=== PATIENT | female | born 1950 | race Caucasian/White ===

== ENCOUNTER 2017-11-25 10:13 | Emergency (ER) | payer OTHER ==
--- NOTE | 2017-11-25 11:20 | UC ---
Throat Pain/Nasal [place] HPI - HPI Summary HPI Summary: 67 yo WF h/o renal calculi c/o cough, sore throat associated with f/c this AM, also had brief episode of heart palpitations associated with chills. Denies h/o HTN or arrythmias and thinks it may be related to acute physical sickness. Has had arrythmias and "arrythmias" but "hates doctors" and never followed up - History of Current Complaint Chief Complaint: UCGeneralIllness Stated Complaint: SORE THROAT CHILLS EAR PAIN RAPID HEART BEAT Time Seen by Provider: 11/25/17 11:03 Hx Obtained From: Patient Onset/Duration: Sudden Onset, Lasting Days, Still Present Pain Intensity: 0 Cough: Nonproductive Associated Signs & Symptoms: Positive: Fever - Allergies/Home Medications Allergies/Adverse Reactions: Allergies Allergy/AdvReac Type Severity Reaction Status Date / Time hydrocodone Allergy Vomiting Verified 11/25/17 10:25 Penicillins Allergy Rash Verified 11/25/17 10:25 Home Medications: Home Medications NK [No Home Medications Reported] 11/25/17 [History Confirmed 11/25/17] PMH/Surg Hx/FS Hx/Imm Hx Previously Healthy: Yes - Surgical History Surgical History: None - Social History Alcohol Use: Rare Substance Use Type: None Smoking Status (MU): Never Smoked Tobacco Review of Systems Constitutional: Fever, Chills Skin: Negative Eyes: Negative ENT: Negative Respiratory: Cough Cardiovascular: Palpitations Gastrointestinal: Negative Genitourinary: Negative Motor: Negative Neurovascular: Negative Musculoskeletal: Negative Neurological: Negative Psychological: Negative All Other Systems Reviewed And Are Negative: Yes Physical Exam Triage Information Reviewed: Yes Vital Signs: Initial Vital Signs Temp 35.8 C 11/25/17 10:26 Pulse 51 11/25/17 10:26 Resp 18 11/25/17 10:26 BP 153/122 11/25/17 10:26 Pulse Ox 100 11/25/17 10:26 Eye Exam: Normal ENT Exam: Normal ENT: Positive: Pharynx normal, Nasal drainage. Negative: Nasal congestion, Sinus tenderness Dental Exam: Normal Neck exam: Normal Neck: Positive: 1 Respiratory Exam: Normal Respiratory: Positive: Lungs clear Cardiovascular: Positive: Tachycardia, Other: - irregularly irrgular HR in 140's Abdominal Exam: Normal Abdomen Description: Positive: Nontender Musculoskeletal Exam: Normal Neurological Exam: Normal Psychological Exam: Normal Skin Exam: Normal Throat Pain/Nasal Course/Dx - Course Course Of Treatment: EKG revelaed afib in 140's. Pt remained stable and conversnat w/o c/o CP and SOB and currently very anxious and initally refused ambulance. PT somewhat nonchalant and VERY OPPOSED to going to [facility] [place] becuse "their friends had bad experiences there" and would rather go to another hospital, to which i advised against and to go via Ambulance autumn, son agreed but taking pt a long time to convince and finally reluctantly agreed. Discussed with son who initially felt better about driving her to ED but upon further monitoring on EKG and persistent afib with HR in 120-140-150's, ambulance called and Dr Hines in ER made aware. manual SBP in 190's, pt also very anxious Discharge - Sign-Out/Discharge Documenting (check all that apply): Discharge - Discharge Plan Condition: Guarded Disposition: TRANS HIGHER LVL OF CARE FAC Discharge Disposition Comment: Spoke to Dr Hines informed that pt will go to ED via ambulance Patient Education Materials: A-fib (Atrial Fibrillation) (ED) Referrals: No Primary Care Phys,NOPCP [Primary Care Provider] - - Billing Disposition and Condition Condition: GUARDED Disposition: EMTALA
[2017-11-25 11:39] VITALS: BP 195/100
[2017-11-25] MEDS ORDERED: Metoprolol Tartrate TAB* 25 MG PO ONE (11:48)
[2017-11-25] MEDS ORDERED: Aspirin EC TAB* 325 MG PO ONE (11:48)
[2017-11-25] MEDS ORDERED: Aspirin TAB* 325 MG ONE (11:51)
--- NOTE | 2017-11-27 16:11 | UC ---
- Progress Note Progress Note: Patient was sent to ED for further care---However does have some yeast in her throat culture---please call and assure sore throat sx have have resolved-- <Janae Kat - Last Filed: 11/27/17 16:09> Discharge - Sign-Out/Discharge Documenting (check all that apply): Post-Discharge Follow Up - Billing Disposition and Condition Condition: GUARDED Disposition: EMTALA <Janae Kat - Last Filed: 11/27/17 16:09> - Sign-Out/Discharge Documenting (check all that apply): Post-Discharge Follow Up - Billing Disposition and Condition Condition: GUARDED Disposition: EMTALA <Micaela Mathew - Last Filed: 11/27/17 19:27> - Discharge Plan Condition: Guarded Disposition: TRANS HIGHER LVL OF CARE FAC Patient Education Materials: A-fib (Atrial Fibrillation) (ED) Referrals: No Primary Care Phys,NOPCP [Primary Care Provider] - Additional Instructions: f/u of throat culture shows presence of yeast, after telephone f/u by nurse patient continues to have throat irritation, will prescribe nystatin swish and swallow , referral to PCP for follow up
== END 2017-11-25 12:18 | disposition short-term general hospital (02) ==
LOC: UCEAST 10:13
DX: R05 Cough (principal); R50.9 Fever, unspecified; B37.9 Candidiasis, unspecified; R00.2 Palpitations; R00.0 Tachycardia, unspecified; I48.92 Unspecified atrial flutter; Z79.82 Long term (current) use of aspirin; R06.02 Shortness of breath; Z88.5 Allergy status to narcotic agent; Z88.0 Allergy status to penicillin
CPT/HCPCS: 87070; 87651; 93005; 99203; A9270-GY; G0463

== ENCOUNTER 2017-11-25 12:41 | Inpatient (IN) | payer OTHER ==
[2017-11-25] MEDS ORDERED: NS 0.9% 1000 ML* 1,000 ML IV ONE (12:49)
[2017-11-25] MEDS ORDERED: Metoprolol Tartrate IV* 1 MG/ML 5 ML VIAL IV ONE (13:10)
--- NOTE | 2017-11-25 13:32 | RAD ---
INDICATION: Flulike symptoms. Cough. Tachycardia. Comparison: No relevant prior exams available on the [facility] [place] for comparison. Technique: Upright AP 1315 hours Report: Elevated lung volumes. No focal pulmonary lesion, compelling alveolar consolidation, pleural effusion, pneumothorax. Negative for cardiomegaly. Unremarkable central pulmonary vasculature. Mildly tortuous descending thoracic aorta. IMPRESSION: Elevated lung volumes suggest potential obstructive lung disease. No acute cardiopulmonary process evident.
[2017-11-25 13:40] LABS: ABS Basophils 0.1 10^3/ul (0-0.2); ABS Eosinophils 0 10^3/ul (0-0.6); ABS Lymphocytes 1.5 10^3/ul (1.0-4.8); ABS Monocytes 0.6 10^3/ul (0-0.8); ABS Neutrophils 8.9 10^3/ul (1.5-7.7); ABS Nucleated RBC 0 10^3/ul; Eosinophil % 0.3 % (0-6); Hematocrit 47 % (35-47); Hemoglobin 15.7 g/dl (12.0-16.0); Lymphocyte % 13.6 % (25-47); Mean Corpuscular HGB Conc 33 g/dl (31-36); Mean Corpuscular Hemoglobin 29 pg (27-31); Mean Corpuscular Volume 88 fL (80-97); Mean Platelet Volume 8.6 um3 (7.4-10.4); Nucleated Red Blood Cells % 0; Platelet Count 243 10^3/ul (150-450); Red Blood Count 5.37 10^6/ul (4.0-5.4); Red Cell Distribution Width 13 % (10.5-15); White Blood Count 11.1 10^3/ul (3.5-10.8)
[2017-11-25 14:14] LABS: EGFR Non-African American 50.1 (>60)
[2017-11-25] MEDS ORDERED: Diltiazem IV* 5 MG/ML 5 ML VIAL (for loading dose/IV Push) (25 MG) IV SLOW PU ONE ×2 (15:07→17:47)
[2017-11-25 16:34] LABS: Urine Appearance Cloudy; Urine Blood 3+ (Negative); Urine Color Straw; Urine Ketones Negative (Negative); Urine Protein 1+(30 mg/dL) (Negative); Urine Specific Gravity 1.007 (1.010-1.030); Urine Urobilinogen Negative (Negative)
[2017-11-25] MEDS ORDERED: cefTRIAXone(*) 1 GM in NS 0.9% 50 ML* 50 ML IVPB ONE (17:32)
[2017-11-25] MEDS ORDERED: Dextrose 50% Syringe 50 ML* 25 GM/50 ML SYRINGE IV PUSH PRN (17:47)
[2017-11-25] MEDS ORDERED: Acetaminophen TAB* 325 MG PO PRN (17:47)
[2017-11-25] MEDS ORDERED: Ondansetron INJ* 2 MG/ML VIAL IV PRN (17:47)
[2017-11-25] MEDS ORDERED: NS 0.9% 50 ML* 100 ML ONE (17:51)
[2017-11-25] MEDS ORDERED: Diltiazem IV VIAL* 125 MG in NS 0.9% 100 ML* 100 ML IVPB SCH (18:00)
[2017-11-25] MEDS ORDERED: NS 0.9% 1000 ML* 1,000 ML IV SCH (18:00)
[2017-11-25] MEDS: Insulin LISPRO* 1 UNITS UNIT SUBCUT SCH (18:19)
--- NOTE | 2017-11-25 21:33 | HP ---
HISTORY AND PHYSICAL: DATE OF ADMISSION: 11/25/17 PRIMARY CARE PROVIDER: None. ATTENDING PHYSICIAN WHILE IN THE HOSPITAL: Rosi Prieto MD * (report dictated by Johnathon Dolan NP) CHIEF COMPLAINT: 1. Palpitations. 2. Not feeling well. HISTORY OF PRESENT ILLNESS: Mrs. Maciel is a 67-year-old female patient. She does not see primary care provider. The only history that she knows of is nephrolithiasis. She states she went to Urgent Care today because she woke up this morning between 4 and 6 in the morning, started having palpitations and she felt sweaty. She noticed the palpitations. She said my heart was running at like 90 miles an hour. She said she had palpitations. She has had these once before when she went through menopause and none since then. She went to bed last night around 11 o'clock. She said she felt fine. She did not have palpitations. She said today with palpitations, she did not feel short of breath. She did not have any leg calf pain. No recent trips or travel or surgeries. She denied having any chest tightness, chest discomfort. No chest pressure. She went to Urgent Care after she spoke to her son about what was going on. Urgent Care evaluated her and found that she was in Aflutter and then she was sent to the hospital. She does not take any medications routinely. The only thing she says is that she has had a cold for the last 2 to 3 weeks, but she is getting over. She said she was not taking any stimulant medications. No pseudoephedrine. She does not drink caffeine. She denied any drug use or any again stimulants, but the patient was obviously found to be in rapid Aflutter. So, we were asked to evaluate for admission. PAST MEDICAL HISTORY: Shows nephrolithiasis. PAST SURGICAL HISTORY: Denied. HOME MEDICATIONS: Denied. ALLERGIES TO MEDICATIONS: Include PENICILLINS and HYDROCODONE. FAMILY HISTORY: Her mom's history is unknown. Her father did have heart concerns. SOCIAL HISTORY: She does not smoke. Does not drink. She is . Surrogate decision maker is her son. REVIEW OF SYSTEMS: There is no documented fever. She denied any significant weight change. She denies having any ear discharge. There was rhinorrhea, which is now improved. She did feel congested, which is now improved. She denies having any shortness of breath. No chest pain. No abdominal pain. There was no nausea, no vomiting. No dysuria, no frequency. No seizure, no loss of consciousness. No pruritus and no skin ulcerations. Review of 14 systems was completed, all others negative. PHYSICAL EXAMINATION GENERAL: At this time, Mrs. Maciel is a 67-year-old female patient. She appears to be well nourished, well developed. She is sitting in the ED stretcher. Does not appear to be in any acute distress. VITAL SIGNS: Blood pressure 144/76, pulse 76, respirations 14, O2 saturations 97%. I will say now that her heart rate is 146. She was given a Cardizem bolus in the ED. When she was given it, it did drop her pressures and according to nursing staff, systolics into the 70s, so the drip was not started. HEENT: Head: Atraumatic, normocephalic. Eyes: EOMs are intact. Sclerae anicteric and not pale. Throat: Oral mucosa appears to be moist. No oropharyngeal erythema. NECK: Supple. LUNGS: Clear to auscultation bilaterally. No wheezes, rales, or rhonchi. HEART: Sounds S1, S2. Irregularly irregular rate. No murmurs, rubs, or gallops. ABDOMEN: Soft, flat, nontender. Bowel sounds were present. EXTREMITIES: Pulses were 2+ throughout. She is moving all 4 extremities with 5 /5 strength. NEUROLOGIC: She is awake, alert, oriented x3. Tongue midline. Generator Rebuilder were equal. No gross focal deficits. SKIN: Intact. LABORATORY DATA/DIAGNOSTIC STUDIES: WBC 11.1, RBC of 5.37, hemoglobin of 15.7 , hematocrit of 47, platelet count 243. Blood gas showed a pH of 7.37, pCO2 of 41, pO2 of 34, that was venous. Sodium is 136, potassium 4.8, chloride of 99, bicarb of 25, BUN 15, creatinine 1.09, glucose 336. Lactate was 2.5. Mag was 11.7. Calcium 10.1. Total mag 2.0. Total bili 0.4, AST 18, ALT 17, alk phos 103. Troponin 0.01, repeat troponin was 0.02. TSH was normal at 1.38, free T4 was 0.88. Urine showed 3+ leukocyte esterase, 3+ wbc's, 1+ bacteria. She had a chest x-ray, impression: Elevated lung volumes suggest potential obstructive lung disease, no acute cardiopulmonary process evident. She had a couple of EKGs today, which does show atrial flutter with a diffuse ST depression with intraventricular conduction delay. Previous EKGs did show normal sinus rhythm with rate 84. Old medical records were reviewed. ASSESSMENT AND PLAN: Mrs. Maciel is a 67-year-old female patient coming in to the ED with complaints of palpitations. On evaluation, was found to be in atrial flutter. We were asked to evaluate for admission. She will be admitted under observation status for: 1. Atrial flutter. I had a lengthy discussion with the patient as she is adamantly refusing blood thinners. She does not want to be on any blood thinners whatsoever. I explained to her that she has a high risk for cerebrovascular accident. Her CHADS-VASc score is 3. I did explain to her that she is at risk for stroke from 3.2% to 4.6%. The patient at this point though again is willing to take this risk and understands the risk associated with stroke. She is able to verbalize to me that stroke can cause significant disability and cause permanent damage and also lead to . I did explain that strokes in her setting of atrial flutter, she should be on blood thinner, but she did not. She was willing to take aspirin, which I did start for her. I did explain to her that rate control would be paramount in this and she is not interested in cardioversion given the fact that she would need to be on anticoagulation. So, she is agreeable to undergo Cardizem drip and then transition to p.o. Cardizem. So, I am going to try to hopefully have her convert if I can get her heart rate down on IV Cardizem. I suspect this started sometime in the middle of the night last night. I did order an echo. We will cycle her troponins. Her electrolytes appeared to be stable. Her mag was normal, her K was normal and her TSH is normal and we will continue to follow her. 2. New onset diabetes. Again, I did explain to the patient that her A1c was 11.7 and that she certainly does appear to have diabetes. I explained to her I would put her on a lispro sliding scale and I also explained to her that untreated diabetes could lead to kidney damage, retinal damage, could lead to heart disease, could lead to neuropathy, amputations if left untreated. Also could lead to if untreated due to side effects related to diabetes. The patient was amenable to going on sliding scale and she is willing to go on low dose metformin with close followup. I am going to refer her to see [facility]. In addition to this, I will refer her to a nutrition evaluation as well. 3. Elevated lactic acid. I suspect this is probably related to the diabetes or being dehydrated. Also underlying infection could be the source. She does have a urinary tract infection. I am going to put her on Rocephin to treat this. I have ordered a rapid flu swab given the recent URI symptoms. Her chest x-ray was negative and because of the low rate temperature, I think blood cultures are appropriate if she will allow us to draw them. I did explain to her the risks of untreated infection and how uncontrolled diabetes can certainly increase her risk for infection. So, again I will go ahead and put her on Rocephin to treat the underlying urinary tract infection. 4. DVT prophylaxis. She is refusing all blood thinners. I did explain to her risks of deep venous thromboses while in the hospital. She is at increased risk given her age and her BMI, but at this point she is refusing. So I did put her on SCDs. 5. Code status. Full code. 6. Fluids, electrolytes, and nutrition. Consistent carb diet. TIME SPENT: Time spent on admission 70 minutes, greater than half of the time spent [id number] with the patient obtaining my history and physical, the other half of the time was spent going over the plan of care with the patient and implementing the plan of care. I discussed the plan of care with my attending, Dr. Prieto; she is in agreement. JOHNATHON DOLAN, BRITTNI [id number]/[facility] #: [id number] MTDD
--- NOTE | 2017-11-25 21:33 | CONS ---
CONSULTATION REPORT: DATE OF CONSULT: 11/25/17 REFERRING PHYSICIANS: Rosi Prieto MD, and Woody Dolan NP. REASON FOR CARDIOLOGY CONSULTATION: New onset atrial flutter. HISTORY OF PRESENT ILLNESS: The patient is a difficult historian and repeatedly shares with me her dislike of physicians and "this hospital". It sounds like this morning she woke up with palpitations after having had URI symptoms for a month. She went to [facility] where she was referred for [facility] admission. She denies chest pain or shortness of breath. PAST MEDICAL HISTORY: Unknown as the patient has not seen a physician for at least 3 years. She notes that she has "ruptured back discs" from which she gets back pain as well as rare migraines. OUTPATIENT MEDICATIONS: Advil rarely p.r.n. ALLERGIES TO MEDICATIONS: PENICILLIN which causes a rash and HYDROCODONE. FAMILY HISTORY: Positive for diabetes in her sister, colon cancer in her maternal grandmother, and Parkinson's disease in her father. No family history of stroke, cardiac disease. SOCIAL HISTORY: She has been for 43 years. 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 She is a college graduate. She does not abuse alcohol or use illicit drugs, nor smoked cigarettes, nor utilized Sudafed. She does not drink caffeine which she states gives her a headache. 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 She does have significant low back pain which limits her ability to exercise. REVIEW OF SYSTEMS: The patient notes that her main concern seems to be low back pain with "ruptured disks." She denies a personal history of stroke, cancer, vomiting blood, coughing up blood, bright red blood per rectum or any stomach ulcers. It sounds like she may have renal calculi. 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 The patient blames her prior medical care providers for not diagnosing that and she has had a left-sided kidney infection. She denies asthma, emphysema, pneumonia, tuberculosis, sleep apnea, home oxygen use, diagnosed diabetes, diagnosed hypertension, prior [place], congestive heart failure, cardiac surgery. She does have a history of "congenital heart murmur." No recent flutters with her last palpitations 15 years ago when she was having menopause. She denies personal history of psychiatric illnesses, lupus, psoriasis, seizures, Parkinson's disease, myasthenia gravis, thyroid disorders, liver disorders, kidney disorders, claudication symptoms, pulmonary emboli, deep venous thrombosis, peripheral arterial disease, peripheral edema. She rarely has GERD. All other review of systems are negative x16 systems except as described above. PHYSICAL EXAM: Vital Signs: Blood pressure is 144/98, pulse is 116, respiratory rate 18. On general exam, she is an anxious suspicious woman, in no acute distress. HEENT shows the cranium is normocephalic and atraumatic. She has moist mucosal membranes. Neck veins are not distended. There are no carotid bruits. Visible skin warm and perfused. Affect is appropriate. She appears oriented. No significant kyphoscoliosis on recumbent back exam. Lungs are clear to auscultation anteriorly. No wheezes. No rales. Cardiac Exam: S1 , S2. Irregular rate, controlled. No significant murmurs, rubs, or gallops. PMI is nondisplaced. Abdomen: Soft, nondistended, appears benign. Extremities : Without significant edema. Pulses appear intact. DIAGNOSTIC STUDIES/LABORATORY DATA: A 12-lead EKG is reviewed from 11/25/17 at 12:50, which demonstrates atrial flutter at 135 beats per minute. She had an EKG on 07/09/06, which demonstrates sinus rhythm. White blood cell count of 11.1, hematocrit 47, platelet count 243,000. Sodium 136, potassium 4.9, chloride 99, bicarbonate 125, BUN 15, creatinine 1.09, glucose 336, hemoglobin A1c 11.7, ALT 17, magnesium 2.0. Troponin 0.02. TSH 1.38. IMPRESSION: Ms. Maciel is a 67-year-old woman, who does not seek regular medical care with apparent new onset atrial flutter since this morning, who has been having a month of upper respiratory infectious symptoms. Her CHADS2-VASC score is at least 2, given her age greater than 65 and female gender (although may be closer to 4 given her apparent diabetes and hypertension). We have recommended the patient be placed on a Cardizem drip for heart rate control and oral anticoagulation. The patient refuses those medications as she states she does not feel she needs any further Cardizem and that she needs to "research any medication I put inside my body" especially as she states her [id number] had a stroke while taking a blood thinner in the past. The patient does seem quite suspicious about the healthcare system in general which would seem to complicate her compliance capacity. RECOMMENDATIONS: 1. As above, I would recommend Cardizem drip initiation with titration to keep heart rate less than 90 beats per minute (with transition to oral AV otto blockers as her heart rate control improves) as well as oral anticoagulation. I would plan for a rate control strategy until her upper respiratory infection symptoms resolve and would reevaluate her if she is willing to take the oral anticoagulant for potential cardioversion in a month or so. 2. Recommend the patient establish with primary care, especially as it appears that she has diabetes and hypertension. I would be willing to see the patient in the future if she so desires, but it sounds as though she does not feel that she needs to follow up with a outbound supervisor and given her history, it appears that noncompliance would be a real concern with this patient. Thank you for this cardiology consultation opportunity. Please do not hesitate to contact me if you have any questions or concerns regarding the patient's cardiovascular consultative care. I have also discussed the case with Woody Dolan NP of the hospitalist service. [id number]/[facility] #: [id number] CHRIS
[2017-11-26] MEDS ORDERED: Zolpidem TAB* 5 MG PO ONE (01:00)
[2017-11-26 05:33] LABS: ABS Basophils 0.1 10^3/ul (0-0.2); ABS Eosinophils 0.2 10^3/ul (0-0.6); ABS Lymphocytes 3.4 10^3/ul (1.0-4.8); ABS Monocytes 0.8 10^3/ul (0-0.8); ABS Neutrophils 5.5 10^3/ul (1.5-7.7); ABS Nucleated RBC 0 10^3/ul; Eosinophil % 2.3 % (0-6); Hematocrit 41 % (35-47); Hemoglobin 13.9 g/dl (12.0-16.0); Lymphocyte % 33.8 % (25-47); Mean Corpuscular HGB Conc 34 g/dl (31-36); Mean Corpuscular Hemoglobin 29 pg (27-31); Mean Corpuscular Volume 88 fL (80-97); Mean Platelet Volume 8.3 um3 (7.4-10.4); Nucleated Red Blood Cells % 0; Platelet Count 199 10^3/ul (150-450); Red Blood Count 4.71 10^6/ul (4.0-5.4); Red Cell Distribution Width 13 % (10.5-15); White Blood Count 10.1 10^3/ul (3.5-10.8)
[2017-11-26 05:40] LABS: INR 0.98 (0.77-1.02)
[2017-11-26] MEDS ORDERED: Aspirin 81 mg CHEW TAB* 81 MG TAB.CHEW PO SCH (09:00)
[2017-11-26] MEDS ORDERED: cefTRIAXone VIAL(*) 1,000 MG in NS 0.9% 50 ML* 50 ML IVPB SCH (09:00)
[2017-11-26] MEDS ORDERED: Pneumococcal *Vac Polyvalent 0.5 ML VIAL IM ONE (09:00)
[2017-11-26] MEDS ORDERED: Influenza VAC *QUAD* 2017-18* 0.5 ML SYRINGE IM ONE (09:00)
[2017-11-26] MEDS: Insulin LISPRO* 1 UNITS UNIT SUBCUT SCH ×2 (09:12→12:17)
--- NOTE | 2017-11-26 11:02 | ECHO ---
Patient: RADHA RICK [facility] Rec#: [id number] : 1950 Date: 11/26/2017 Age: 67y Height: 170.18 cm / 67.0 in Weight: 74.84 kg / 164.9 lbs Sex: F BSA: 1.86 Room#: [facility] Admit Date#: 11/25/2017 Type: Inpatient Referring: Woody Dolan NP Reading: Denis Connell MD Shovel Oiler: Mony Reese RDCS Transthoracic Echocardiogram Indication: A-flutter BP: 160/88 HR: 89 Rhythm: NSR with PACs Findings History: HTN, new diagnosis of DM. Technical Comments: The study quality is fair. The study is technically limited due to poor acoustic windows. Completed at 0845. Left Ventricle: The left ventricular chamber size is normal. Mild concentric left ventricular hypertrophy is observed. Global left ventricular wall motion and contractility are within normal limits. There is normal left ventricular systolic function. The estimated ejection fraction is 60-65%. Abnormal left ventricular diastolic filling is observed, consistent with impaired relaxation. Left Atrium: The left atrial chamber size is normal. Right Ventricle: The right ventricular cavity size is normal. The right ventricular global systolic function is normal. Right Atrium: The right atrium is mildly dilated. Aortic Valve: The aortic valve structure is not well visualized. There is no evidence of aortic regurgitation. There is no evidence of aortic stenosis. Mitral Valve: The mitral valve leaflets are mildly thickened. There is a trace of mitral regurgitation. Tricuspid Valve: The tricuspid valve leaflets are normal. There is a physiologic tricuspid regurgitation. The right ventricular systolic pressure is estimated at 13 mmHg. No pulmonary hypertension is noted. Pulmonic Valve: The pulmonic valve structure is not well visualized. There is no evidence of pulmonic regurgitation. There is no pulmonic stenosis. Pericardium: There is no significant pericardial effusion. A pericardial fat pad is visualized. Aorta: There is no dilatation of the ascending aorta. There is no dilatation of the aortic arch. The aortic root is normal in size. Pulmonary Artery: The main pulmonary artery is not well visualized. Venous: The inferior vena cava appears normal in size. There is a greater than 50% respiratory change in the inferior vena cava dimension. Conclusions There is normal left ventricular systolic function. The estimated ejection fraction is 60-65%. Global left ventricular wall motion and contractility are within normal limits. The left ventricular chamber size is normal. Mild concentric left ventricular hypertrophy is observed. Abnormal left ventricular diastolic filling is observed, consistent with impaired relaxation. The right atrium is mildly dilated. Functionally benign heart valves. There is no prior echocardiogram available to compare with at this time. Measurements Name Value Normal Range RVIDd (AP) 2D 2 cm (0.9 - 2.6) RVDdMajor (2D) 2.9 cm (2.2 - 4.4) RAd ISD 4CH 5.2 cm (3.4 - 4.9) RA (A4C)W 3.5 cm (2.9 - 4.6) IVSd (2D) 1.1 cm (0.6 - 1) LVPWd (2D) 1.1 cm (0.6 - 1) LVIDd (2D) 4.1 cm (3.6 - 5.4) LVIDs (2D) 2.3 cm - LV FS (2D) 43 % (25 - 45) Aortic Annulus 1.8 cm (1.4 - 2.6) Ao root diameter (2D) 2.5 cm (2.1 - 3.5) Ascending Ao 3.2 cm (2.1 - 3.4) Aortic arch 2 cm (1.8 - 3.4) LA dimension (AP) 2D 3.1 cm (2.3 - 3.8) LAd ISD 4CH 4.9 cm (2.9 - 5.3) LA ISD 4CH W 4.1 cm (2.5 - 4.5) Name Value Normal Range LA ESV SP 4CH (A/L) 50 ml - LA ESV SP 2CH (A/L) 87 ml - LA ESV BP (A/L) 68 ml - LA ESV BP (A/L) index 37 ml/m2 - LA ESV SP 4CH (MOD) 49 ml - LA ESV SP 2CH (MOD) 80 ml - Name Value Normal Range MV E-wave Vmax 0.79 m/sec - MV deceleration time 257.97 msec - MV A-wave Vmax 0.99 m/sec - MV E:A ratio 0.79 ratio - LV septal e' Vmax 0.07 m/sec - LV lateral e' Vmax 0.06 m/sec - LV E:e' septal ratio 11.29 ratio - LV E:e' lateral ratio 13.17 ratio - Name Value Normal Range AV Vmax 1.6 m/sec - AV VTI 32.92 cm - AV peak gradient 10.5 mmHg - AV mean gradient 6.68 mmHg - LVOT Vmax 0.91 m/sec - LVOT VTI 16.77 cm - LVOT peak gradient 3.37 mmHg - LVOT mean gradient 2.05 mmHg - INDY Vmax 0.76 m/sec - Name Value Normal Range TR Vmax 1.6 m/sec - TR peak gradient 10 mmHg - RAP 3 mmHg - RVSP 13 mmHg - IVC diameter 1.7 cm - Name Value Normal Range PV Vmax 0.7 m/sec - PV peak gradient 2 mmHg -
[2017-11-26] MEDS ORDERED: Diltiazem CD CAP* 180 MG PO SCH (12:00)
[2017-11-26 12:24] VITALS: BP 164/75
[2017-11-26] MEDS ORDERED: cefTRIAXone 1000 MG SYRINGE IVPB Q24H (in NaCl) IVPB SCH ×2 (20:00)
--- NOTE | 2017-11-26 23:17 | DS ---
DISCHARGE SUMMARY: DATE OF ADMISSION: 11/25/17. DATE OF DISCHARGE: 11/26/17. PRIMARY CARE PROVIDER: None. PRINCIPAL DIAGNOSES: 1. Atrial flutter. 2. Hypertension. 3. Type 2 diabetes. DISCHARGE MEDICATIONS: 1. Metformin 500 mg p.o. twice daily. 2. Diltiazem CD 180 mg p.o. daily. 3. Vantin 200 mg p.o. q. 12 hours x11 doses. 4. Aspirin 81 mg p.o. daily. HOSPITAL COURSE: Ms. Maciel is a 67-year-old female who has not seen a physician in quite few years, who presents to the emergency room with complaints of palpitations. She was found to be in atrial flutter. The patient was evaluated by Dr. Connell who noted that the patient's CHADS-VASc score is 3. It was recommended that she go on both diltiazem and a blood thinner. The patient adamantly refuses to take a blood thinner. She is willing to take a baby aspirin daily. The patient converted to normal sinus rhythm while on a diltiazem drip. She has since been started on diltiazem CD 180 mg p.o. daily. The patient's blood pressure remains quite elevated though she has not received any medication yet today. She would likely need further adjustments in an antihypertensive regimen; however, this will need to happen very slowly as the patient is hesitant to take any medications whatsoever. Additionally, the patient was found to be diabetic. Her hemoglobin A1c is markedly elevated at 11.7%. The patient is willing to start low dose metformin 500 mg twice daily. She again is hesitant to take any medication at this point. She would like to work on diet and exercise. I have explained to her that she would likely need to have the metformin dose increased; however, this alone would likely not control her blood sugars. The patient does not have a primary care provider and therefore I spent almost 30 minutes talking about different options for a PCP. We attempted to call two different offices and they are not accepting patients. Three other names have been provided to the patient to call and speak with. The hospitalist coordinator with follow up with the patient next week to ensure that she has a primary care provider visit in place. The patient was also found to have an abnormal urinalysis. Possibly urinary tract infection. She was started on ceftriaxone in the hospital and will continue on Vantin to complete her course of therapy. On the day of discharge, the patient is awake, alert, and oriented, sitting up in bed in no acute distress. Her heart rate is mildly tachycardic though she is sinus rhythm. This is without any diltiazem onboard. Additionally, she has moderately elevated blood pressure. Her cardiac exam reveals a normal S1 and S2 , a heart rate that is mildly tachycardic but regular. She has no lower extremity edema. Her lungs are clear to auscultation bilaterally. Her abdomen is soft, nontender, and nondistended. FOLLOWUP CONCERNS: The patient is being discharged home today, 11/26/17. CONDITION ON DISCHARGE: Stable. DIET: Diabetic. TIME SPENT: Forty-five minutes were spent discharging this patient. [id number]/CPS #: [id number] MTDSandra
--- NOTE | 2017-11-30 12:27 | ED ---
Arnoldo Claudio Stephanie, scribed for Michele Hines MD on 11/25/17 at 1325 . HPI Febrile Illness - HPI Summary HPI Summary: The pt is a 67 y/o F presenting to the ED with c/o fever that began today at 06: 00. Symptoms include diaphoresis and heart fluttering. The pt denies dizziness, SOB, lightheadedness, N/V, dysuria, hematuria and CP. She reports she has had a recent illness for the past month. The pt denies caffeine consumption this morning. The pt was sent from with noted rapid A-fib. Noted to have rate of 140-150 BPM. The pt reports she has chronic back pain. She states she feels " run down" secondary to general illness and recent stressors. - History of Current Complaint Chief Complaint: EDDysrhythmPalp Time Seen by Provider: 11/25/17 12:49 Hx Obtained From: Patient Onset/Duration: Started Hours Ago - 4, Still Present Timing: Constant Current Severity: None Pain Intensity: 0 Pain Scale Used: 0-10 Numeric Aggravating Factors: Nothing Alleviating Factors: Nothing Associated Signs and Symptoms: Diaphoresis, Other: - heart "fluttering" - Allergy/Home Medications Allergies/Adverse Reactions: Allergies Allergy/AdvReac Type Severity Reaction Status Date / Time hydrocodone Allergy Vomiting Verified 11/25/17 10:25 Penicillins Allergy Rash Verified 11/25/17 10:25 PMH/Surg Hx/FS Hx/Imm Hx Cardiovascular History: Reports: Hx Hypertension, Other Cardiovascular Problems/ Disorders - congenital murmur EENT History: Denies: Hx Deafness - Cancer History Cancer Type, 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 Negative: Chills Negative: Erythema Negative: Sore Throat Positive: Other - "fluttering" . Negative: Chest Pain Negative: Shortness Of Breath, Cough Negative: Abdominal Pain, Vomiting, Nausea Negative: dysuria, hematuria Negative: Myalgia, Edema Negative: Rash Neurological: Other - Negative: dizziness, lightheadeedness All Other Systems Reviewed And Are Negative: Yes Physical Exam - Summary Physical Exam Summary: Constitutional: Well-developed, Well-nourished, Alert. (-) Distressed Skin: Warm, Dry HENT: Normocephalic; Atraumatic Eyes: Conjunctiva normal Neck: Musculoskeletal ROM normal neck. (-) JVD, (-) Stridor, (-) Tracheal deviation Cardio: rapid HR, occasionally irregular, Heart sounds normal; Intact distal pulses; The pedal pulses are 2+ and symmetric. Radial pulses are 2+ and symmetric. (-) Murmur Pulmonary/Chest wall: Effort normal. (-) Respiratory distress, (-) Wheezes, (-) Rales Abd: Soft, (-) Tenderness, (-) Distension, (-) Guarding, (-) Rebound Musculoskeletal: (-) Edema Lymph: (-) Cervical adenopathy Neuro: Alert, Oriented x3 Psych: Mood and affect Normal Triage Information Reviewed: Yes Vital Signs On Initial Exam: Initial Vitals Temp Pulse Resp BP Pulse Ox 100.3 F 135 14 164/125 99 11/25/17 12:54 11/25/17 12:54 11/25/17 12:54 11/25/17 12:54 11/25/17 12:54 Vital Signs Reviewed: Yes Diagnostics - Vital Signs Vital Signs Temp Pulse Resp BP Pulse Ox 11/25/17 12:54 100.3 F 135 14 164/125 99 - Laboratory Result Diagrams: 11/25/17 13:08 11/25/17 13:08 Lab Statement: Any lab studies that have been ordered have been reviewed, and results considered in the medical decision making process. - Radiology CXR Xray Interpretation: No Acute Changes Radiology Interpretation Completed By: Radiologist - Elevated lung volumes suggest potential obstructive lung disease. No acute cardiopulmonary process evident. ED physician has reviewed this report. - EKG 12:50 Cardiac Rate: Tachycardia EKG Rhythm: Sinus Rhythm - 135 BPM EKG Interpretation: No STEMI 14:32 Cardiac Rate: Tachycardia EKG Rhythm: Atrial Flutter - 134 BPM EKG Interpretation: Atrial flutter with predominant 2:1 AV block Re-Evaluation - Re-Evaluation First Eval Re-Evaluation Time: 15:10 Change: Unchanged - HR 140. Course/Dx - Course Course Of Treatment: Upon slowing underling rhythm of atrial flutter, atrial flutter became apparent. Pt may be undiagnosed and untreated for diabetes. Her long-term A1c: 11.7. - Diagnoses Provider Diagnoses: Atrial flutter with rapid ventricular response, Diabetes, UTI (urinary tract infection) - Provider Notifications Discussed Care Of Patient With: Rosi Prieto Time Discussed With Above Provider: 17:39 Discharge - Sign-Out/Discharge Documenting (check all that apply): Discharge - Discharge Plan Condition: Stable Disposition: ADMITTED TO [facility] The documentation as recorded by the Arnoldo yao Stephanie accurately reflects the service I personally performed and the decisions made by Donny wells Jerry, MD.
== END 2017-11-26 12:40 | disposition home or self-care (01) | DRG 309 ==
LOC: ED 12:41 → ICU 17:45
PROVIDERS: ADMIT Internal Medicine; ATTEND Hospitalist
DX: I48.92 Unspecified atrial flutter (principal); N39.0 Urinary tract infection, site not specified; G43.909 Migraine, unspecified, not intractable, without status migrainosus; I10 Essential (primary) hypertension; E86.0 Dehydration; K21.9 Gastro-esophageal reflux disease without esophagitis; M54.5 Low back pain; E11.9 Type 2 diabetes mellitus without complications; Z79.82 Long term (current) use of aspirin; Z79.84 Long term (current) use of oral hypoglycemic drugs; Z87.442 Personal history of urinary calculi; Z88.0 Allergy status to penicillin; Z80.0 Family history of malignant neoplasm of digestive organs; Z88.5 Allergy status to narcotic agent; Z82.49 Family history of ischemic heart disease and other diseases of the circulatory system; Z83.3 Family history of diabetes mellitus; Z82.0 Family history of epilepsy and other diseases of the nervous system
CPT/HCPCS: 36415; 71045; 80048; 80053; 80307; 81003; 81015; 82803; 83036; 83605; 83735; 84439; 84443; 84484; 85025; 85610; 87040; 87086; 87502; 93005; 93306; 99285; A9270-GY; J0696; J3490